=== PATIENT | male | born 1990 | race Caucasian/White ===

== ENCOUNTER 2016-03-30 10:15 | Emergency (ER) | payer OTHER ==
[~2016-03-30] VITALS: Ht 180.3 cm; Wt 70.3 kg
--- NOTE | ~2016-03-30 | EKG ---
[place] [address] [facility] [place] [address] ELECTROCARDIOGRAM REPORT Name: FRANCO DEL RIO Room #: EDE Mccracken#: [id number] Admission: 03/30/16 Attend Phys: Discharge: 03/30/16 Date of : [birth year] Report #: [id number] THIS REPORT FOR: //name// [facility] ED Test Date: 2016-03-30 Test Time: 10:17:54 Pat Name: FRANCO DEL RIO Department: Room: Gender: Testing And Regulating Chief: : 1990 Requested By: Mario Rivas Order Number: [id number] MD: Garrett Skinner Measurements Intervals [place] Rate: 61 P: 59 DE: 128 QRS: 67 QRSD: 81 T: 57 QT: 381 QTc: 384 Interpretive Statements Sinus rhythm ST elevation suggests acute pericarditis No previous ECG available for comparison Electronically Signed On 03-30-2016 15:16:11 NYLON MENDER by Garrett Skinner [email or web address] <ELECTRONICALLY SIGNED> By: Garrett Skinner MD 03/30/16 1516 [id number] Garrett Skinner MD /ALYSIA
[2016-03-30] MEDS ORDERED: MOBIC15 MG PO (11:34)
[2016-03-30 12:05] VITALS: BP 119/70
== END 2016-03-30 12:06 | disposition home or self-care (01) ==
LOC: ER 10:15
DX: M94.0 Chondrocostal junction syndrome [Tietze] (principal); R07.89 Other chest pain; Z72.0 Tobacco use